=== PATIENT | female | born 1955 | race Caucasian/White ===

== ENCOUNTER → 2019-09-21 07:27 | Outpatient (CLI) | payer OTHER, SELFPAY ==
--- NOTE | ~2019-09-21 | US_ITS ---
US renal BI 09/21/2019 08:01 Procedure: Realtime transabdominal ultrasound of the kidneys and bladder. Indication: Chronic kidney disease stage II. Right renal cyst. Hematuria. Comparison: No prior studies for comparison. Findings: There is a right renal cyst measuring 5.1 x 3.4 x 3.3 cm. Otherwise renal echotexture is no rmal bilaterally. No solid masses, hydronephrosis or renal stones. The right kidney measures 9.4 cm a nd left kidney measures 9.7 cm. Bladder within normal limits. Impression: 1: 5.1 cm right renal cyst. Reviewed, dictated and finalized at location A. ERS COMPENSATION LEGAL SECRETARY Impression: 1: 5.1 cm right renal cyst.
== END ==
PROVIDERS: PCP Internal Medicine
DX: N18.2 Chronic kidney disease, stage 2 (mild) (principal); N28.1 Cyst of kidney, acquired
CPT/HCPCS: 76775

== ENCOUNTER → 2020-05-21 08:10 | Outpatient (CLI) | payer OTHER, SELFPAY ==
--- NOTE | ~2020-05-21 | CT_ITS ---
EXAMINATION: CT abdomen pelvis wo/w con EXAM DATE: 05/21/2020 09:02 INDICATION: Hematuria. Renal cysts, hysterectomy. TECHNIQUE: Spiral CT of the abdomen and pelvis was performed without contrast. The patient was then injected with small bolus intravenous Omnipaque 350, followed by delay of approximately 10 minutes to allow collecting system to opacify. A post contrast scan abdomen and pelvis was performed during inj ection of remaining contrast. A total of 130 cc intravenous contrast was administered. The dose-jenny th product (DLP) for this examination was 1006.23 mGy-cm. The exposure was tailored according to pat ient size (auto mA exposure control), and iterative reconstruction (ASIR) was used as additional dose reduction technique. There is no prior study for comparison. FINDINGS: There is no hydronephrosis or nephrolithiasis. There is right renal parapelvic cyst measur ing 4.5 cm. Subcentimeter left renal cysts. The kidneys enhance symmetrically. There are no suspici ous renal lesions. The calyces and opacified portions of ureters are unremarkable, without filling d efects or focal suspicious strictures. There is mild to moderate sigmoid diverticulosis with contigui ty to the left superolateral aspect of the bladder, probably some scarring from prior episode of dive rticulitis. The uterus is not identified and has likely been surgically resected. The liver, spleen, adrenal glands and pancreas are unremarkable. Gallbladder is unremarkable. No bi liary obstruction. There is no retroperitoneal or pelvic lymphadenopathy. There is mild scattered arteriosclerotic disease. The appendix is normal. The stomach and small bowel are unremarkable. Expected amount of colonic sto ol. There is no adjacent inflammatory change to suggest diverticulitis. No free intraperitoneal gas. The heart is normal in size. There are no pericardial or pleural effusions. The lung bases are u nremarkable. There are no osteoblastic or osteolytic lesions identified. IMPRESSION: 1. Sigmoid diverticulosis with contiguity, evidence of scarring between it and the bladder likely pr ior episodes of diverticulitis. 2. Renal cysts, largest on the right. Reviewed, dictated and finalized at location A. IMPRESSION: 1. Sigmoid diverticulosis with contiguity, evidence of scarring between it and the bladder likely prior episodes of diverticulitis. 2. Renal cysts, largest on the right.
[2020-05-21 08:37] LABS: Estimated Glomerular Filt Rate > 60
== END ==
PROVIDERS: PCP Internal Medicine
DX: N28.1 Cyst of kidney, acquired (principal); K57.30 Diverticulosis of large intestine without perforation or abscess without bleeding
CPT/HCPCS: 74178; Q9967

== ENCOUNTER → 2020-07-14 12:27 | Outpatient (CLI) | payer OTHER, SELFPAY ==
--- NOTE | ~2020-07-14 | DEXA_ITS ---
Bone Density Report Name: Dinorah Apple Age: 65 Sex: Female Ethnicity: White Date of : 1955 Indication: postmenopausal; screening for osteoporosis; prior fracture; hysterectomy; Referring Provider: SUSHILA, LOW [place] Study: Bone densitometry was performed. Exam Date: July 14, 2020 Accession number: [id number] Bone Density: Region BMD T-score Z-score Classification AP Spine (L1-L4) 0.942 -1.0 1.0 Normal Femoral Neck (Left) 0.675 -1.6 0.1 Osteopenia Total Hip (Left) 0.777 -1.4 0.0 Osteopenia Femoral Neck (Right) 0.663 -1.7 0.0 Osteopenia Total Hip (Right) 0.798 -1.2 0.2 Osteopenia Total Hip Mean 0.788 -1.3 0.1 Osteopenia World Health Organization criteria for BMD impression classify patients as: Normal (T-score at or above -1.0), Osteopenia (T-score between -1.0 and -2.5), or Osteoporosis (T-score at or below -2.5). 10-year Fracture Risk(1): Major Osteoporotic Fracture 16% Hip Fracture 3.5% Reported Risk Factors: [place] (), Neck BMD=0.663, BMI=26.4, previous fracture, smoking (1) FRAX(R) Version 3.08. Fracture probability calculated for an untreated patient. Fracture probability may be lower if the patient has received treatment. Clinical Information Provided by Patient: Has had a low trauma fracture Smokes Has used the following medications: Vitamin D Has the following medical conditions: Hysterectomy Patient maximum height was 60 Menopause Age: 41 No regular weight bearing exercise Does not regularly consume dairy products Drinks caffeinated beverages Onset of menses at age 11 Number of children 1 Impression: The patient has low bone mass, based on the Right Femoral Neck T-score. The patient has an estimated ten-year risk of hip fracture of 3.5% and an estimated ten-year risk of major fracture of 16%, based on the WHO FRAX algorithm. The patient has risk factors, including: smoking, previous fracture. Discussion: BONE DENSITY IS LOW AT ONE OR MORE SKELETAL SITES. THE PATIENT'S BMD AND CLINICAL RISK FACTORS CONTRIBUTE TO THIS PATIENT'S INCREASED RISK OF FRACTURE. This patient's lowest T-score is low at one or more skeletal sites. It meets the World Health Organization's (WHO) criteria for ?low bone mass? (T-score between -1.0 and -2.5). The patient's 10-year risk of hip fracture as calculated by FRAX exceeds the threshold where pharmacological therapy is recommended by the National Osteoporosis Foundation (NOF). However, all treatment decisions require clinical judgment and consideration of individual patient factors, including patient preferences, comorbidities, previous drug use, risk factors not captured in the FRAX model (e.g., frailty, falls, vitamin D deficiency, increased bone turnover, interval significant decline in bone density) and possible un
--- NOTE | ~2020-07-14 | MM_ITS ---
EXAMINATION: MM screening dejah BI w ganga HISTORY: Screening mammogram TECHNIQUE: Craniocaudal and mediolateral oblique 3-D tomosynthesis images were obtained and synthetic 2-D images were generated. CAD analysis was submitted and interpreted. COMPARISON: No prior mammogram is available for comparison at this institution. BREAST PARENCHYMAL COMPOSITION: The breasts are heterogeneously dense, which may obscure small masses . FINDINGS: There is focal asymmetry in the upper mid posterior left breast. Diagnostic left mammogram is recommended, ultrasound if required Otherwise there is no evidence of suspicious mass, calcification, or architectural distortion to sugg est malignancy in either breast. There has been no suspicious interval change. IMPRESSION: 1. Focal asymmetry at upper posterior mid left breast. 2. Diagnostic left mammogram is recommended, with ultrasound if required BI-RADS Category 0: Incomplete: Needs additional imaging evaluation. Reviewed, dictated and finalized at location A. TRAFFICKER
== END ==
PROVIDERS: PCP Internal Medicine; Visit Provider Internal Medicine
DX: Z12.31 Encounter for screening mammogram for malignant neoplasm of breast (principal); Z78.0 Asymptomatic menopausal state; R92.8 Other abnormal and inconclusive findings on diagnostic imaging of breast; M85.852 Other specified disorders of bone density and structure, left thigh; M85.851 Other specified disorders of bone density and structure, right thigh
CPT/HCPCS: 77063; 77067; 77080

== ENCOUNTER → 2020-08-07 14:19 | Outpatient (CLI) | payer OTHER, SELFPAY ==
--- NOTE | ~2020-08-07 | MMUS_ITS ---
EXAMINATION: MM diagnostic mammo unilat LT, US breast LT limited HISTORY: Focal asymmetry of the left breast screening mammogram TECHNIQUE: Additional 3-D tomosynthesis images of the left breast were performed and synthetic 2-D im ages were generated. CAD analysis was submitted and interpreted. High resolution limited left breast ultrasound was performed. COMPARISON: 07/14/2020, 06/13/2015, 03/04/2014 FINDINGS: MAMMOGRAPHIC FINDINGS: There is a return to baseline fibroglandular appearance with spot compression of the left breast. No suspicious mass, calcification, or architectural distortion are identified. ULTRASOUND: There is no evidence of focal abnormal solid or cystic lesion in the vicinity of the mammographic fin ding in question. IMPRESSION: 1. No mammographic or sonographic evidence of malignancy. 2. Recommend routine screening mammography in one year. BI-RADS Category 1: Negative Reviewed, dictated and finalized at location A. DESIGNER IMPRESSION: 1. No mammographic or sonographic evidence of malignancy. 2. Recommend routine screening mammography in one year. BI-RADS Category 1: Negative
== END ==
PROVIDERS: Visit Provider Internal Medicine
DX: R92.8 Other abnormal and inconclusive findings on diagnostic imaging of breast (principal)
CPT/HCPCS: 76642; 77065

== ENCOUNTER 2020-11-20 12:54 | Outpatient (CLI) | payer OTHER, SELFPAY | END 2020-11-20 12:55 | disposition home or self-care (01) | LOC: ANHAUDIO 12:56 | PROVIDERS: PCP Internal Medicine; Visit Provider Otolaryngology | DX: H93.13 Tinnitus, bilateral (principal); H90.3 Sensorineural hearing loss, bilateral | CPT/HCPCS: 92557; 92567 ==

== ENCOUNTER 2020-12-31 12:50 | Outpatient (RCR) | payer OTHER, SELFPAY | END 2020-12-31 23:59 | disposition home or self-care (01) | LOC: ANHAUDIO 12:50 | PROVIDERS: PCP Internal Medicine; Visit Provider Otolaryngology | DX: Z46.1 Encounter for fitting and adjustment of hearing aid (principal) | CPT/HCPCS: 99199 ==

== ENCOUNTER → 2021-04-05 08:22 | Outpatient (CLI) | payer OTHER, SELFPAY ==
--- NOTE | ~2021-04-05 | CT_ITS ---
EXAMINATION:CT diagnostic chest wo con DATE: 04/05/2021 08:44 INDICATION: Left lung nodule. TECHNIQUE: Computed tomography (CT) of the chest was performed without intravenous contrast. Automate d exposure control and iterative reconstruction technique were employed. The dose-length product (DLP ) was 167.44 mGy-cm. COMPARISON: CT abdomen and pelvis 05/21/2020 FINDINGS: There is moderate emphysema. There is mild atelectasis bilaterally. There is mild scarring at the paraspinal lower lobes. There is a 6 mm nodule in left lower lobe, stable from 05/21/2020. Ther e is a 2 mm nodule in left upper lobe. No pleural effusion. The heart size is normal. No pericardial effusion. Partially visualized is a 4.3 cm cyst in right kidney. There is mild thoracic spondylosis. IMPRESSION: 1. Small pulmonary nodules, likely benign. 2. Moderate emphysema. Reviewed, dictated and finalized at location A.
== END ==
PROVIDERS: PCP Internal Medicine
DX: N18.2 Chronic kidney disease, stage 2 (mild) (principal); N28.1 Cyst of kidney, acquired; E55.9 Vitamin D deficiency, unspecified; E78.5 Hyperlipidemia, unspecified; R31.9 Hematuria, unspecified; J43.9 Emphysema, unspecified; R91.8 Other nonspecific abnormal finding of lung field
CPT/HCPCS: 71250

== ENCOUNTER → 2021-11-22 10:51 | Outpatient (CLI) | payer OTHER, MEDICARE, SELFPAY ==
--- NOTE | ~2021-11-22 | CT_ITS ---
EXAMINATION: CT diagnostic chest w con EXAM DATE: 11/22/2021 12:04 INDICATION: Lung Nodule . TECHNIQUE: Spiral CT of the chest following intravenous injection of 75 mL Omnipaque 350. Axial, cor onal and sagittal images of the chest were reviewed. Coronal maximum intensity pixel images of chest reviewed. The dose-length product (DLP) for this examination was 225.26 mGy-cm. The exposure was t ailored according to patient size (auto mA exposure control), and iterative reconstruction (ASIR) was used as additional dose reduction technique. Comparison is made to prior examination from 04/05/2021. FINDINGS: Small amount of bibasilar medial scarring, and several noncalcified nodules, 3 mm or less, largest of which has decreased in size. Post infectious residua. There is moderate emphysema and hyp erinflation. There are no pleural or pericardial effusions. Tracheobronchial tree is patent. The re is no mediastinal, hilar or axillary lymphadenopathy. There is no pneumothorax. Heart normal i n size. No evidence of coronary arterial calcification. Upper abdomen is unremarkable. There is moderate thoracic spondylosis without osteoblastic or osteolytic lesions identified. IMPRESSION: 1. Moderate emphysema and hyperinflation. 2. Postinfectious residua. Reviewed, dictated and finalized at location A.
[2021-11-22 12:04] LABS: Estimated Glomerular Filt Rate > 60
== END ==
PROVIDERS: PCP Internal Medicine
DX: R91.1 Solitary pulmonary nodule (principal); J43.9 Emphysema, unspecified; R91.8 Other nonspecific abnormal finding of lung field
CPT/HCPCS: 71260; Q9967

== ENCOUNTER → 2022-02-08 11:16 | Outpatient (CLI) | payer MEDICARE, SELFPAY ==
--- NOTE | ~2022-02-08 | MM_ITS ---
EXAMINATION: MM screening dejah BI w ganga HISTORY: Screening mammogram TECHNIQUE: Craniocaudal and mediolateral oblique 3-D tomosynthesis images were obtained and synthetic 2-D images were generated. CAD analysis was submitted and interpreted. COMPARISON: 08/07/2020 diagnostic left mammogram and limited left breast ultrasound 07/10/2020 screening mammogram The urinary bilateral resection of 7 Meghan centimeters cholelithiasis is again similar 2. Degenerative BREAST PARENCHYMAL COMPOSITION: FINDINGS: There is no evidence of suspicious mass, calcification, or architectural distortion to sugg est malignancy in either breast. There has been no suspicious interval change. IMPRESSION: 1. No mammographic evidence of malignancy. 2. Recommend routine screening mammography in one year. Reviewed, dictated and finalized at location A.
== END ==
PROVIDERS: PCP Internal Medicine; Visit Provider Internal Medicine
DX: Z12.31 Encounter for screening mammogram for malignant neoplasm of breast (principal)
CPT/HCPCS: 77063; 77067

== ENCOUNTER 2024-08-04 13:25 | Emergency (ER) | payer MEDICARE, SELFPAY ==
[2024-08-04 13:44] VITALS: BP 139/64; PULSE 67; RESP 16; TEMP 35.8; O2SAT 97
--- NOTE | 2024-08-04 13:50 | ED_ITS ---
HPI - General Adult General Chief complaint: Unspecified Stated complaint: pain on right side, back to front Time Seen by Provider: 08/04/24 13:45 Source: patient Mode of arrival: ambulatory Limitations: no limitations History of Present Illness HPI narrative: Dinorah is a 69-year-old female patient presenting to the clinic today with complaints of right flank pain that is wrapping into the front abdomen. States that the pain is worse with movement. Pain is been going on for 4 days. No known injury. The shortness of breath or chest pain. States she is voiding more frequently but no burning. No blood in her urine. Last bowel movement this morning and normal. No blood in her stool. Related Data Home Medications ?Medication ?Instructions ?Recorded ?Confirmed ?Last Taken ?Type aspirin 81 mg tablet,delayed 81 mg PO DAILY 08/04/24 08/04/24 Unknown History release (Adult Low Dose Aspirin) atorvastatin 20 mg tablet 20 mg PO QPM 08/04/24 08/04/24 Unknown History Allergies Allergy/AdvReac Type Severity Reaction Status Date / Time No Known Allergies Allergy Verified 08/04/24 13:40 Review of Systems Review of Systems: Pertinent positives per HPI. Patient denies any fever, chills, rash, headache, visual changes, dizziness, cough, runny nose, sore throat, shortness of breath, chest pain, palpitations, nausea, vomiting, diarrhea, constipation. PMFSH Social History Social History Smoking packs per day: 1 Smoking cigarettes per day: 20.0 Smoking status: Current every day smoker Alcohol intake: never Substance use: never Comments At the time of my signature, I reviewed and agree with the nursing past medical, surgical, social, and family history. There is no relevant family history pertinent to the patient complaint. Exam Narrative: General: Well-developed, well nourished, in no apparent distress. Head: Normocephalic, atraumatic. Cardio: Regular rate and rhythm, s1 and s2 normal, no murmur appreciated. Resp: Clear to auscultation bilaterally, no rhonchi, rales, wheezing or rubs. Abdomen: Soft, pliable, bowel sounds present in all quadrants, non-tender to palpation, no organomegly, right CVAT tenderness. Course Course Emergency Course: Portions of this record may have been created with voice recognition software. Level of Care: Express Care Visit Vital Signs Vital signs: Vital Signs Temperature 35.8 C L 08/04/24 13:44 Pulse Rate 67 08/04/24 13:44 Respiratory Rate 16 08/04/24 13:44 Blood Pressure 139/64 08/04/24 13:44 Pulse Oximetry 97 08/04/24 13:44 Oxygen Delivery Room Air 08/04/24 13:44 Temperature 35.8 C L 08/04/24 13:44 Pulse Rate 67 08/04/24 13:44 Respiratory Rate 16 08/04/24 13:44 Blood Pressure 139/64 08/04/24 13:44 Pulse Oximetry 97 08/04/24 13:44 Oxygen Delivery Room Air 08/04/24 13:44 Vital signs reviewed Medical Decision Making MDM Narrative Medical decision making narrative: At the time of visit patient is resting comfortably on the exam table. Patient appears to be nontoxic. Labs: Urinalysis negative for any sign of infection, blood, or protein. Plan: Recommend transfer to the ER for further evaluation of right flank pain as patient has a history of a kidney cyst/mass. Patient would like to be transfer to [facility] in [place], [place]. Report called to Dr. Peralta at [facility]. Differential Diagnosis Differential Diagnosis: Renal stone, renal colic, flank pain, kidney mass, muscle skeletal pain, pneumonia, rib pain Vital Signs Vital Signs: Vital Signs Temperature 35.8 C L 08/04/24 13:44 Pulse Rate 67 08/04/24 13:44 Respiratory Rate 16 08/04/24 13:44 Blood Pressure 139/64 08/04/24 13:44 Pulse Oximetry 97 08/04/24 13:44 Oxygen Delivery Room Air 08/04/24 13:44 Temperature 35.8 C L 08/04/24 13:44 Pulse Rate 67 08/04/24 13:44 Respiratory Rate 16 08/04/24 13:44 Blood Pressure 139/64 08/04/24 13:44 Pulse Oximetry 97 08/04/24 13:44 Oxygen Delivery Room Air 08/04/24 13:44 Discharge Plan Discharge Clinical Impression: Acute right flank pain, Right sided abdominal pain Patient Disposition: Acute Care Hospital Condition: Stable Instructions: Antibiotic Form Patient Language: Somali Prescriptions: No Action atorvastatin 20 mg tablet 20 mg PO QPM aspirin [Adult Low Dose Aspirin] 81 mg tablet,delayed release (DR/EC) 81 mg PO DAILY Follow-up/Referrals: Gavin,Abdulkadir Llanos MD [Primary Care Provider] - Time of Disposition: 14:21 Quality NIHSS Nursing Documentation ED NIHSS nursing documentation: reviewed/agree
[2024-08-04 14:01] LABS: EDUAAPPEAR Clear; EDUABILI Negative (Negative); EDUABLOOD Negative (Negative); EDUACOLOR1 Yellow; EDUAGLUCOSE Negative (Negative); EDUAKETONE Negative (Negative); EDUALEUKO Negative (Negative); EDUANITRATE Negative (Negative); EDUAPROTEIN Negative (Negative); EDUAUROBILI 0.2
== END 2024-08-04 14:20 | disposition short-term general hospital (02) ==
PROVIDERS: Emergency Provider Nurse Practitioner Family; PCP Internal Medicine
DX: R10.9 Unspecified abdominal pain (principal); F17.210 Nicotine dependence, cigarettes, uncomplicated
CPT/HCPCS: 81003; 99212; G0463